=== PATIENT | female | born 1950 ===

== ENCOUNTER 2018-08-16 15:04 | Emergency (ER) | payer MEDICARE, OTHER ==
[2018-08-16 15:48] VITALS: O2SAT 98
[2018-08-16] MEDS ORDERED: Sodium Chloride 0.9% 250 ML IV STA (16:20)
--- NOTE | 2018-08-16 16:35 | ED PDOC ---
HPI: Abdomen Time Seen by Provider: 08/16/18 16:11 Chief Complaint (Nursing): Abdominal Pain Chief Complaint (Provider): Abdominal Pain History Per: Patient History/Exam Limitations: no limitations Onset/Duration Of Symptoms: Hrs Current Symptoms Are (Timing): Constant Location Of Pain/Discomfort: Suprapubic Quality Of Discomfort: Sharp Associated Symptoms: Nausea Additional Complaint(s): 68 y/o female presents to the ED complaining of constant sharp abdominal pain radiating to her back associated with 1 episode of vomiting and persistence nausea that started today at 1400. Patient states it lasted 1 hour prior without any issues and admits being hungry now. She reports she went to her PMD which gave her a shot of Toradol and advised her to come here for further evaluation. Patient had normal bowel movement today and admits of having chills. Patient denies fever, urinary symptoms, vaginal bleeding or discharge, bloody stool, or any constipation. PMD: Jorge Jin. Past Medical History Reviewed: Historical Data, Nursing Documentation, Vital Signs Vital Signs: Last Vital Signs Temp 97.7 F 08/16/18 15:42 Pulse 84 08/16/18 15:42 Resp 16 08/16/18 15:42 BP 166/78 H 08/16/18 15:42 Pulse Ox 98 08/16/18 15:42 Primary Care Provider: Jorge Prado T - Surgical History Surgical History: - Family History Family History: States: No Known Family Hx - Social History Current smoker - smoking cessation education provided: No Alcohol: None Drugs: Denies - Home Medications Home Medications: Ambulatory Orders Medication Instructions Recorded Acetaminophen [Tylenol Extra 1,000 mg PO Q6 PRN #100 tablet 08/16/18 Strength] Ibuprofen [Motrin Tab] 600 mg PO Q8 PRN #30 tab 08/16/18 Lidocaine 5% [Lidoderm] 1 ea TD DAILY PRN #20 patch 08/16/18 traMADol [Ultram] 50 mg PO TID PRN #10 tab 08/16/18 - Allergies Allergies/Adverse Reactions: Allergies Allergy/AdvReac Type Severity Reaction Status Date / Time No Known Allergies Allergy Verified 08/18/18 13:56 Review of Systems ROS Statement: Except As Marked, All Systems Reviewed And Found Negative Constitutional: Positive for: Chills. Negative for: Fever Gastrointestinal: Positive for: Nausea, Vomiting, Abdominal Pain. Negative for: Constipation, Melena Genitourinary Female: Negative for: Dysuria, Hematuria, Vaginal Discharge, Vaginal Bleeding Physical Exam - Reviewed Nursing Documentation Reviewed: Yes Vital Signs Reviewed: Yes - Physical Exam Appears: Positive for: Non-toxic, In Acute Distress Head Exam: Positive for: ATRAUMATIC, NORMOCEPHALIC Skin: Positive for: Warm, Dry Eye Exam: Positive for: EOMI, PERRL ENT: Positive for: Moist Mucous Membranes, Pharynx Is (clear) Neck: Positive for: Painless ROM, Supple Cardiovascular/Chest: Positive for: Regular Rate, Rhythm. Negative for: Murmur Respiratory: Positive for: Normal Breath Sounds. Negative for: Respiratory Distress Gastrointestinal/Abdominal: Positive for: Normal Exam, Soft, Tenderness (RLQ), Other ((+) Mcburney point tenderness, psoas sigh. (-) Teo sign.). Negative for: Mass, Guarding, Rebound Back: Positive for: Other (mild bilateral paraspinal tenderness at lumbar area). Negative for: L CVA Tenderness, R CVA Tenderness, Vertebral Tenderness Extremity: Positive for: Normal ROM, Other (negative BL SLR). Negative for: Deformity Lymphatic: Negative for: Adenopathy Neurological/Psych: Positive for: Awake, Alert. Negative for: Motor/Sensory Deficits - Laboratory Results Result Diagrams: 08/16/18 16:47 08/16/18 16:47 - ECG O2 Sat by Pulse Oximetry: 98 Medical Decision Making Medical Decision Making: Time:1620 Impression:Abdominal pain Differential: Appendicitis, renal colitis, mesenteric adenitis, enteritis, colitis, AAA. Plan: -CT -CMP -Lact acid -CBC -Dextrose 100 mls -Morphine 2mg IVP -Sodium chloride -Zofran 4mg inj -Blood culture -IV insertion -Urinalysis Accession No. : [id number] Patient Name / ID : AURORA SIMMONS / [id number] Exam Date : 08/16/2018 17:27:54 ( Approved ) Study Comment : Sex / Age : F / 68Y Creator : Giovani Curtis MD Dictator : Giovani Curtis MD Distribution Collection Operator : Architectural Engineer : Giovani Curtis MD Approver2 : Report Date : 08/16/2018 18:19:55 My Comment : Date of service: 08/16/2018 PROCEDURE: CT Abdomen and Pelvis with contrast HISTORY: RLQ pain COMPARISON: None. TECHNIQUE: Following the intravenous administration of iodinated contrast material, a CT examination of the abdomen and pelvis was performed from the domes of the diaphragms to the symphysis pubis with reformatted datasets provided in axial, sagittal and coronal planes. Oral contrast was not administered as per referring physician request. Contrast dose: Omnipaque 300, 90 cc Radiation dose: Total exam DLP = 404.83 mGy-cm. This CT exam was performed using one or more of the following dose reduction techniques: Automated exposure control, adjustment of the mA and/or kV according to patient size, and/or use of iterative reconstruction technique. FINDINGS: LOWER THORAX: Cardiomegaly. Small hiatal hernia. LIVER: Unremarkable. No gross lesion or ductal dilatation. GALLBLADDER AND BILE DUCTS: Distended but otherwise unremarkable. No radiodense cholelithiasis or mural thickening. PANCREAS: Unremarkable. No gross lesion or ductal dilatation. SPLEEN: Unremarkable. ADRENALS: Unremarkable. No mass. KIDNEYS AND URETERS: Unremarkable. No hydronephrosis. No solid mass. VASCULATURE: Unremarkable. No aortic aneurysm. No aortic atherosclerotic calcification or mural plaque present. BOWEL: Unremarkable. No obstruction. No gross mural thickening. APPENDIX: Normal appendix. PERITONEUM: Unremarkable. No free fluid. No free air. LYMPH NODES: Unremarkable. No enlarged lymph nodes. BLADDER: The urinary bladder wall appears thickened more so anteriorly than posteriorly suspicious for cystitis though neoplasm is not excluded. Clinically correlate further. Urinary bladder is only mildly distended. REPRODUCTIVE: Unremarkable. BONES: No acute fracture. OTHER FINDINGS: Shotty bilateral inguinal lymph nodes. IMPRESSION: 1. Normal appendix. 2. Potential cystitis though asymmetric urinary bladder mural thickening may indicate neoplasm anteriorly. Clinically correlate further. 3. Shotty bilateral inguinal lymph nodes. 4. Incidental mild cardiomegaly. No pulmonary vascular congestion. Incidental small hiatal hernia. --- Scribe Attestation: Documented by Angelica Gonzalez, acting as a scribe for Kandi Walls. Provider Scribe Attestation: All medical record entries made by the Scribe were at my direction and personally dictated by me. I have reviewed the chart and agree that the record accurately reflects my personal performance of the history, physical exam, medical decision making, and the department course for this patient. I have also personally directed, reviewed, and agree with the discharge instructions and di sposition. Time: 1854 -- Discussed findings with Dr. Prado. Will administer more pain medications for control of pain and LS Spine XR ordered. If pain is controlled and XRs are negative, patient can follow up in his office this week. Scribe Attestation: Documented by Lilo Cruz, acting as a scribe Tylor Adams MD. Provider Scribe Attestation: All medical record entries made by the Scribe were at my direction and personally dictated by me. I have reviewed the chart and agree that the record accurately reflects my personal performance of the history, physical exam, medical decision making, and the department course for this patient. I have also personally directed, reviewed, and agree with the discharge instructions and disposition. Disposition - Clinical Impression Clinical Impression: Abdominal pain, Low back pain - Disposition Referrals: Jorge Prado MD [Staff Provider] - 08/17/18 Disposition: Routine/Home Disposition Time: 18:55 Condition: STABLE Prescriptions: Acetaminophen [Tylenol Extra Strength] 1,000 mg PO Q6 PRN #100 tablet PRN Reason: pain Ibuprofen [Motrin Tab] 600 mg PO Q8 PRN #30 tab PRN Reason: Pain, Moderate (4-7) Lidocaine 5% [Lidoderm] 1 ea TD DAILY PRN #20 patch PRN Reason: PAIN traMADol [Ultram] 50 mg PO TID PRN #10 tab PRN Reason: SEVERE PAIN ONLY Instructions: Low Back Pain (DC), Acute Abdomen (Belly Pain), Adult (DC), Opioids for Short-Term Treatment of Pain Forms: [facility] ED School/Work Excuse Print Language: [place]
[2018-08-16 17:00] LABS: URINE BACTERIA RARE (<OCC); URINE BILIRUBIN NEGATIVE (NEGATIVE); URINE BLOOD NEGATIVE (NEGATIVE); URINE CLARITY CLEAR (Clear); URINE COLOR COLORLESS (YELLOW); URINE GLUCOSE (UA) NEG (NEGATIVE); URINE LEUKOCYTE ESTERASE NEG Leu/uL (Negative); URINE PROTEIN NEGATIVE (NEGATIVE); URINE UROBILINOGEN 0.2-1.0 mg/dL (0.2-1.0)
[2018-08-16 17:03] LABS: ALB/GLOB RATIO 1.3 (1.0-2.1); ALBUMIN 4.6 g/dL (3.5-5.0); ALT/SGPT 36 U/L (9-52); AST/SGOT 46 U/L (14-36); BLOOD UREA NITROGEN 14 mg/dl (7-17); GFR NON-AFRICAN AMERICAN > 60
[2018-08-16 17:05] LABS: HEMOGLOBIN 13.1 g/dL (12.0-16.0); MEAN CELL VOLUME 96.3 fl (81.0-99.0); MEAN CORPUSCULAR HEMOGLOBIN 32.4 pg (27.0-31.0); MEAN CORPUSCULAR HGB CONC 33.7 g/dL (33.0-37.0); RBC 4.03 Mil/uL (3.80-5.20); WHITE BLOOD COUNT 11.1 K/uL (4.8-10.8)
[2018-08-16 17:06] LABS: LYMPH % 7.3 % (20.0-40.0); MEAN PLATELET VOLUME 8.4 fl (7.2-11.7); MONO % 5.5 % (0.0-10.0); NEUT % 86.8 % (50.0-75.0); PLATELET COUNT 232 K/uL (130-400); RED CELL DISTRIBUTION WIDTH 14.4 % (11.5-14.5)
[2018-08-16 17:07] LABS: BASO % 0.3 % (0.0-2.0); EOS % 0.1 % (0.0-4.0); LYMPH # 0.8 K/uL (1.0-4.3); NEUT # 9.7 K/uL (1.8-7.0); NRBC % 0.1 % (0.0-0.0)
[2018-08-16 17:08] LABS: MONO # 0.6 K/uL (0.0-0.8)
[2018-08-16] MEDS ORDERED: Sodium Chloride 0.9% 50 ML IV ONE (17:14)
[2018-08-16] MEDS ORDERED: Iohexol 300 100 ML IJ ONE (17:14)
[2018-08-16 17:59] LABS: LYMPHOCYTE 8 % (20-50); MONOCYTE 5 % (0-10); NEUTROPHIL 87 % (42-75); PLATELET ESTIMATE NORMAL (NORMAL); TOTAL CELLS COUNTED 100
--- NOTE | 2018-08-16 18:23 | CT ---
Date of service: 08/16/2018 PROCEDURE: CT Abdomen and Pelvis with contrast HISTORY: RLQ pain COMPARISON: None. TECHNIQUE: Following the intravenous administration of iodinated contrast material, a CT examination of the abdomen and pelvis was performed from the domes of the diaphragms to the symphysis pubis with reformatted datasets provided in axial, sagittal and coronal planes. Oral contrast was not administered as per referring physician request. Contrast dose: Omnipaque 300, 90 cc Radiation dose: Total exam DLP = 404.83 mGy-cm. This CT exam was performed using one or more of the following dose reduction techniques: Automated exposure control, adjustment of the mA and/or kV according to patient size, and/or use of iterative reconstruction technique. FINDINGS: LOWER THORAX: Cardiomegaly. Small hiatal hernia. LIVER: Unremarkable. No gross lesion or ductal dilatation. GALLBLADDER AND BILE DUCTS: Distended but otherwise unremarkable. No radiodense cholelithiasis or mural thickening. PANCREAS: Unremarkable. No gross lesion or ductal dilatation. SPLEEN: Unremarkable. ADRENALS: Unremarkable. No mass. KIDNEYS AND URETERS: Unremarkable. No hydronephrosis. No solid mass. VASCULATURE: Unremarkable. No aortic aneurysm. No aortic atherosclerotic calcification or mural plaque present. BOWEL: Unremarkable. No obstruction. No gross mural thickening. APPENDIX: Normal appendix. PERITONEUM: Unremarkable. No free fluid. No free air. LYMPH NODES: Unremarkable. No enlarged lymph nodes. BLADDER: The urinary bladder wall appears thickened more so anteriorly than posteriorly suspicious for cystitis though neoplasm is not excluded. Clinically correlate further. Urinary bladder is only mildly distended. REPRODUCTIVE: Unremarkable. BONES: No acute fracture. OTHER FINDINGS: Shotty bilateral inguinal lymph nodes. IMPRESSION: 1. Normal appendix. 2. Potential cystitis though asymmetric urinary bladder mural thickening may indicate neoplasm anteriorly. Clinically correlate further. 3. Shotty bilateral inguinal lymph nodes. 4. Incidental mild cardiomegaly. No pulmonary vascular congestion. Incidental small hiatal hernia.
[2018-08-16 19:09] VITALS: BP 158/87; PULSE 85; RESP 18; TEMP 99.6
[2018-08-16] MEDS ORDERED: Morphine 4 MG/ML VIAL ONE (19:24)
--- NOTE | 2018-08-17 08:06 | RAD ---
Date of service: 08/16/2018 PROCEDURE: Radiographs of the Lumbar Spine. HISTORY: back pain COMPARISON: No prior. TECHNIQUE: 5 views obtained. FINDINGS: BONES: Normal alignment. No listhesis. No fracture. Transitional elements inferred L5 appears transitional for purposes of this report. L5-S1 disc space shallow//rudimentary. All lumbar disc space is slightly narrowed DISC SPACES: Narrowed as above OTHER FINDINGS: Minimal spondylotic ridging most notable right L3-4. Contrast in moderately distended pattern from recent CT abdomen and pelvis IV contrast enhanced study. Limited in terms of any possible renal calculi in the IV contrast enhancement associated with prior CT study. IMPRESSION: No fracture or lytic lesion. Other findings as above.
== END 2018-08-16 20:35 | disposition home or self-care (01) ==
LOC: H.ER 15:04
DX: R10.9 Unspecified abdominal pain (principal); M54.9 Dorsalgia, unspecified
CPT/HCPCS: 72100; 74177; 80053; 81003; 83605; 85025; 87040; 87149; 96374; 96375; 99285; J1885; J2270; J2405; J7030; J7042; Q9967